=== PATIENT | male | born 1985 ===

== ENCOUNTER → 2020-06-03 11:23 | Outpatient (BNVA) | payer MEDICAID, SELFPAY | PROVIDERS: PCP Family Medicine; Visit Provider Family Medicine | DX: R00.0 Tachycardia, unspecified (principal); E88.81 Metabolic syndrome and other insulin resistance; F32.9 Major depressive disorder, single episode, unspecified; F41.9 Anxiety disorder, unspecified; I10 Essential (primary) hypertension; G24.01 Drug induced subacute dyskinesia | CPT/HCPCS: 80053; 80061; 83036; 83721; 84443; 85025 ==

== ENCOUNTER → 2021-01-05 09:23 | Outpatient (BNVA) | payer MEDICAID, SELFPAY | PROVIDERS: PCP Family Medicine; Visit Provider Family Medicine | DX: E11.9 Type 2 diabetes mellitus without complications (principal) | CPT/HCPCS: 83036 ==

== ENCOUNTER → 2023-07-13 08:50 | Outpatient (BNVA) | payer MEDICAID, SELFPAY | PROVIDERS: PCP Family Medicine; Visit Provider Nurse Practitioner Family | DX: R00.0 Tachycardia, unspecified (principal); I10 Essential (primary) hypertension; E11.9 Type 2 diabetes mellitus without complications; E78.5 Hyperlipidemia, unspecified | CPT/HCPCS: 80053; 80061; 81003; 83036; 83721; 84439; 84443; 84481; 85025; 93005 ==

== ENCOUNTER → 2023-07-14 08:31 | Outpatient (BNVA) | payer MEDICAID, SELFPAY | PROVIDERS: PCP Family Medicine; Visit Provider Nurse Practitioner Family | DX: D64.9 Anemia, unspecified (principal) | CPT/HCPCS: 82728; 83550 ==

== ENCOUNTER → 2023-10-25 13:02 | Outpatient (BNVA) | payer MEDICAID, SELFPAY | PROVIDERS: PCP Family Medicine; Referring Provider Nurse Practitioner Family; Visit Provider Surgery | DX: K62.5 Hemorrhage of anus and rectum (principal) | CPT/HCPCS: 99204 ==

== ENCOUNTER → 2023-12-01 10:54 | Outpatient (BNVA) | payer MEDICAID, SELFPAY | PROVIDERS: PCP Family Medicine; Visit Provider Nurse Practitioner Family | DX: D50.9 Iron deficiency anemia, unspecified (principal); E78.2 Mixed hyperlipidemia; E11.9 Type 2 diabetes mellitus without complications; I10 Essential (primary) hypertension; E88.810 Metabolic syndrome | CPT/HCPCS: 80053; 80061; 82728; 83036; 83550; 85025 ==

== ENCOUNTER → 2024-03-11 15:27 | Outpatient (BNVA) | payer MEDICAID, SELFPAY | PROVIDERS: PCP Nurse Practitioner Family; Visit Provider Nurse Practitioner Family | DX: E78.2 Mixed hyperlipidemia (principal); E11.9 Type 2 diabetes mellitus without complications; D50.9 Iron deficiency anemia, unspecified; I10 Essential (primary) hypertension; D64.9 Anemia, unspecified; F41.9 Anxiety disorder, unspecified | CPT/HCPCS: 80053; 80061; 81003; 82728; 83036; 83550; 83721; 85025 ==

== ENCOUNTER 2024-03-26 09:34 | Day surgery (SDC) | payer MEDICAID, SELFPAY ==
[2024-03-26 09:45] VITALS: BMI 31.3
[2024-03-26 09:47] VITALS: BP 116/78; PULSE 105; RESP 18; TEMP 36.3; O2SAT 97
--- NOTE | 2024-03-26 09:51 | P.ANESASSM_ITS ---
Pre-Anesthetic Assessment Height/Weight: Height 1.83 m Weight 104.78 kg Temp Pulse Resp BP Pulse Ox 97.4 F L 105 H 18 116/78 97 03/26/24 09:47 03/26/24 09:47 03/26/24 09:47 03/26/24 09:47 03/26/24 09:47 Operation Date: 03/26/24 10:35 Proposed Procedures p Colonoscopy 04706, 81186, K62.5(Not Applicable) - Grover Song MD s EGD(Not Applicable) - Grover Song MD Familial anesthetic complications: None Was Beta Greyson taken within 24 hours: N/A Was Clonidine taken within 24 hours: N/A Last intake: Intake Last Liquid Date 03/25/24 Last Liquid Time 18:00 Last Solid Date 03/24/24 Last Solid Time 18:00 Social No alcohol and No tobacco Exam alert, oriented x 3, clear to auscultation bilaterally and regular rate & rhythm Airway Mallampati: Class IV Dentition: other (no teeth) Pulmonary Sleep Apnea Metabolic Diabetes Mellitus Neuropsych Austism Anesthetic Plan ASA status: 3 Anesthesia: MAC Risk of > 500 ml blood loss (7ml/kg in children): No Medications/Allergies Home Medications Medication Instructions Recorded Confirmed Last Taken Type ascorbate calcium (vitamin C) 500 500 mg PO DAILY 90 days #90 tabs 07/14/23 03/19/24 03/18/24 Rx mg tablet cholecalciferol (vitamin D3) 25 25 mcg PO DAILY 90 days #90 caps 07/14/23 03/19/24 03/19/24 Rx mcg (1,000 unit) capsule coenzyme Q10 75 mg capsule (Ultra 75 mg PO DAILY #90 caps 07/14/23 03/19/24 03/19/24 Rx CoQ10) ezetimibe 10 mg tablet (Zetia) 10 mg PO DAILY 30 days #30 tabs 12/13/23 03/19/24 Unknown Rx ferrous sulfate 324 mg (65 mg 324 mg PO DAILY #30 tabs 12/13/23 03/19/24 03/19/24 Rx iron) tablet,delayed release clonidine HCl 0.1 mg tablet 0.1 mg PO DAILY PRN anxiety 30 03/11/24 03/19/24 03/19/24 Rx days #30 tabs atorvastatin 40 mg tablet 40 mg PO DAILY 03/19/24 03/19/24 03/18/24 History benztropine 1 mg tablet 1 mg PO BID 03/19/24 03/19/24 03/19/24 History dulaglutide 0.75 mg/0.5 mL 0.75 mg SUBCUT .WEEKLY 03/19/24 03/19/24 03/15/24 History subcutaneous pen injector (Trulicity) metformin 1,000 mg tablet See Rx Instructions .Route .COMPLEX 03/19/24 03/19/24 03/19/24 History ondansetron HCl 4 mg tablet 4 mg PO Q8H PRN Nausea And Vomiting 03/19/24 03/19/24 Unknown History paroxetine HCl 40 mg tablet (Paxil) 40 mg PO DAILY 03/19/24 03/19/24 03/19/24 History risperidone 1 mg tablet 1 mg PO QAM 03/19/24 03/19/24 03/19/24 History risperidone 2 mg tablet 2 mg PO BEDTIME 03/19/24 03/19/24 03/18/24 History sitagliptin phosphate 25 mg tablet 25 mg PO BEDTIME 03/19/24 03/19/24 03/18/24 History (Januvia) sitagliptin phosphate 50 mg tablet 50 mg PO QAM 03/19/24 03/19/24 03/19/24 History (Januvia) Allergies Allergy/AdvReac Type Severity Reaction Status Date / Time No Known Allergies Allergy Verified 03/19/24 10:04 [facility] [place] Anesthesia Medical History (Updated 03/18/24 @ 16:43 by MARYA Mckeon) Vitamin D deficiency Anxiety Anemia Autism Rectal bleeding Hemorrhoid Iron deficiency anemia Tachycardia Type 2 diabetes mellitus Hyperlipidemia Diarrhea Paranoid schizophrenia Family History Other Diabetes Social History Smoking and tobacco/nicotine status: current every day tobacco/nicotine user Alcohol intake: never Substance/Drug Use: never Data Anesthesia Cardiac Studies: No Data to Display
[2024-03-26] MEDS: sodium chloride 0.9% 1,000 ML 30 ML IV (10:01)
[2024-03-26 10:21] LABS: Glucose Point of Care 123 mg/dL (70-110)
--- NOTE | 2024-03-26 10:33 | W.PM.OPSFHP ---
Same Day Surgery H&P Indication for Procedure/HPI DATE OF PROCEDURE: March 26, 2024 CHIEF COMPLAINT/INDICATIONFOR SURGICAL PROCEDURE: gi bleeding PREOP DIAGNOSIS: gi bleeding PLANNED PROCEDURE: Operation Date: 03/26/24 10:35 Proposed Procedures p Colonoscopy 87125, 98904, K62.5(Not Applicable) - Grover Song MD s EGD(Not Applicable) - Grover Song MD Medications/Allergies* Home Medications Medication Instructions Recorded Confirmed Type atorvastatin 40 mg tablet 40 mg PO DAILY 03/19/24 03/19/24 History benztropine 1 mg tablet 1 mg PO BID 03/19/24 03/19/24 History dulaglutide 0.75 mg/0.5 mL 0.75 mg SUBCUT .WEEKLY 03/19/24 03/19/24 History subcutaneous pen injector (Trulicity) metformin 1,000 mg tablet See Rx Instructions .Route .COMPLEX 03/19/24 03/19/24 History ondansetron HCl 4 mg tablet 4 mg PO Q8H PRN Nausea And Vomiting 03/19/24 03/19/24 History paroxetine HCl 40 mg tablet (Paxil) 40 mg PO DAILY 03/19/24 03/19/24 History risperidone 1 mg tablet 1 mg PO QAM 03/19/24 03/19/24 History risperidone 2 mg tablet 2 mg PO BEDTIME 03/19/24 03/19/24 History sitagliptin phosphate 25 mg tablet 25 mg PO BEDTIME 03/19/24 03/19/24 History (Januvia) sitagliptin phosphate 50 mg tablet 50 mg PO QAM 03/19/24 03/19/24 History (Januvia) Allergies/Adverse Reactions Allergy/AdvReac Type Severity Reaction Status Date / Time No Known Allergies Allergy Verified 03/19/24 10:04 Current Medications: Generic Name Dose Route Start Last Admin Trade Name Freq PRN Reason Stop Dose Admin Sodium Chloride 1,000 mls @ 30 mls/hr 03/26/24 09:45 03/26/24 10:01 Sodium Chloride 0.9% IV 03/27/24 09:44 30 mls/hr .Q24H SAIGE Administration Pertinent History/Comorbid Conditions* Medical History (Updated 03/18/24 @ 16:43 by MARYA Mckeon) Vitamin D deficiency Anxiety Anemia Autism Rectal bleeding Hemorrhoid Iron deficiency anemia Tachycardia Type 2 diabetes mellitus Hyperlipidemia Diarrhea Paranoid schizophrenia Family History (Updated 03/23/20 @ 14:00 by Davina Wiley LPN) Diabetes Social History Smoking and tobacco/nicotine status: current every day tobacco/nicotine user Alcohol intake: never Substance/Drug Use: never Pertinent Exam Findings alert, oriented x 3 and clear to auscultation bilaterally Recommendations Surgery/Procedure today Coding Level of Care Code Acute Code for Chg Fwd
[2024-03-26 11:10] VITALS: BP 106/68; PULSE 84; RESP 14; TEMP 36.3; O2SAT 96
[2024-03-26 11:25] VITALS: BP 119/81; PULSE 87; RESP 16; O2SAT 92
[2024-03-26 11:38] VITALS: BP 112/77; PULSE 76; RESP 18; O2SAT 94
--- NOTE | 2024-03-26 11:50 | ANE.PACU2 ---
Inpatient post-anesthesia follow up: Airway intact: Yes Vital signs: Temperature 97.3 F Pulse Rate 76 Respiratory Rate 18 Blood Pressure 112/77 Pulse Oximetry 94 Oxygen Delivery Me thod Room Air Oxygen Flow Rate 3 Fraction of Inspir ed Oxygen Hydration adequate: Yes Nausea and vomiting: No Pain level: 1 Mental status: Baseline
== END 2024-03-26 11:53 | disposition home or self-care (01) ==
PROVIDERS: PCP Nurse Practitioner Family; Visit Provider Surgery
PROC: 0DJD8ZZ Inspection of Lower Intestinal Tract, Via Natural or Artificial Opening Endoscopic (ICD-10-PCS; CPT 45378; principal; 2024-03-26 10:35)
PROC: 0DJ08ZZ Inspection of Upper Intestinal Tract, Via Natural or Artificial Opening Endoscopic (ICD-10-PCS; CPT 43235; 2024-03-26 10:35)
DX: K29.50 Unspecified chronic gastritis without bleeding (principal); F41.9 Anxiety disorder, unspecified; K62.5 Hemorrhage of anus and rectum; K64.8 Other hemorrhoids; E55.9 Vitamin D deficiency, unspecified; F84.0 Autistic disorder; E11.9 Type 2 diabetes mellitus without complications; Z79.84 Long term (current) use of oral hypoglycemic drugs; E78.5 Hyperlipidemia, unspecified; G47.30 Sleep apnea, unspecified; F17.200 Nicotine dependence, unspecified, uncomplicated
CPT/HCPCS: 36416; 43239; 45378; 82962; 88305; 88342; J2250; J2704; J7030

== ENCOUNTER → 2024-12-09 11:51 | Outpatient (BNVA) | payer MEDICAID, SELFPAY | PROVIDERS: PCP Nurse Practitioner Family; Visit Provider Emergency Medicine | DX: E11.9 Type 2 diabetes mellitus without complications (principal); E78.2 Mixed hyperlipidemia; D50.9 Iron deficiency anemia, unspecified; E55.9 Vitamin D deficiency, unspecified | CPT/HCPCS: 80053; 80061; 81003; 82306; 82728; 83036; 83550; 83721; 85025 ==